=== PATIENT | male | born 1945 | race Caucasian/White ===

== ENCOUNTER → 2016-05-04 | Outpatient (CLI) | payer BC, MEDICARE ==
[~2016-05-04] MED LIST: B-100 COMPLEX1 EACH PO; CENTRUM SILVER1 EAC1 PO; HYDROCHLOROTHIA25 MG PO; KEFLEX500 MG PO; NORCO 5/3251 TABLET PO; NORVASC5 MG PO; PROSCAR5 MG PO; PROTONIX40 MG; PROTONIX40 MG PO; TAMSULOSIN HCL0.4 MG PO; VITAMIN B-6100 MG PO; VITAMIN D2000 UNIT PO
== END | disposition home or self-care (01) ==
LOC: CDC 12:35
DX: I49.3 Ventricular premature depolarization (principal)
CPT/HCPCS: 93000

== ENCOUNTER 2016-09-22 12:49 | Emergency (ER) | payer OTHER ==
[~2016-09-22] VITALS: Ht 175.3 cm; Wt 94.1 kg
[2016-09-22 13:28] LABS: EOSINOPHIL (%) 0.6 % (0-5); EOSINOPHIL COUNT 0.1 K/uL (0-0.3); HEMATOCRIT 41.4 % (38.0-50.0); IMMATURE GRANULOCYTE (%) 0.6 % (0.0-0.7); IMMATURE GRANULOCYTE COUNT 0.1 K/uL; INSTRUMENT ABS NEUTROPHIL CT 8.9 K/uL; LYMPHOCYTE COUNT 0.9 K/uL (1.0-2.8); MCH 30.4 PG (29.0-34.0); MCHC 34.3 G/DL (30.0-36.0); MCV 88.7 FL (86-99); MEAN PLAT.VOLUME 10.6 uM^3 (9.0-12.4); MONOCYTE (%) 4.3 % (3-12); MONOCYTE COUNT 0.5 K/uL (0-0.8); NEUTROPHIL (%) 85.9 % (45-76); NEUTROPHIL COUNT 8.9 K/uL (1.8-6.4); PLATELET COUNT 199 K/uL (156-360); RBC DIS.WIDTH-CV 12.4 % (11.8-14.6); RBC DIS.WIDTH-SD 40.7 % (39-53); RED BLOOD COUNT 4.67 M/uL (4.00-5.50); WHITE BLOOD COUNT 10.4 K/uL (4.1-10.2)
[2016-09-22 13:39] LABS: CHLORIDE 104 mEq/L (99-109); POTASSIUM 3.7 mEq/L (3.7-5.4); PROTHROMBIN TIME 10.2 (9.2-11.2); PTT 23.3 (25-32); SODIUM 138 mEq/L (136-147)
[2016-09-22 13:40] LABS: MAGNESIUM 1.7 mg/dL (1.3-2.7)
[2016-09-22 13:41] LABS: GLUCOSE 128 mg/dL (70-99)
[2016-09-22 13:42] LABS: ANION GAP 11 MEQ/L (2-14)
[2016-09-22 13:45] LABS: GFR ESTIMATE (CALCULATED) > 59 mL/min/
[2016-09-22 13:46] LABS: UREA NITROGEN (BUN) 16 mg/dL (9-23)
[2016-09-22 13:49] LABS: TROP-I INTERPRETATION NEGATIVE; TROPONIN-I < 0.01 ng/mL (0.0-0.30)
[2016-09-22] MEDS ORDERED: ALEVE220 MG PO (17:32)
[2016-09-22 22:01] LABS: Estimated Average Glucose 108 mg/dL (70-123); HEMOGLOBIN A1c (GLYCOHEMOGLOB) 5.4 % HGB (Below 5.7)
[2016-09-22 22:03] LABS: HDL CHOLESTEROL 50 MG/DL (Desirable>=40); LDL CHOLESTEROL 94 mg/dL (Desirable<100); NON-HDL CHOLESTEROL 106 mg/dL (Desirable<160); TOTAL CHOLESTEROL 156 mg/dL (Desirable<200); TRIGLYCERIDES 61 MG/DL (Normal: <150)
[2016-09-23 00:47] VITALS: BP 135/84
[2016-09-24 08:52] LABS: TREPONEMA ANTIBODY NEGATIVE (NEGATIVE)
== END 2016-09-23 01:07 | disposition short-term general hospital (02) ==
LOC: EME 12:49 → EDOF 20:41 → EME 20:41 → EDOF 21:03
PROVIDERS: Emergency Medicine; Hospitalist
DX: C71.9 Malignant neoplasm of brain, unspecified (principal); R55 Syncope and collapse; I10 Essential (primary) hypertension; K21.9 Gastro-esophageal reflux disease without esophagitis; Z87.891 Personal history of nicotine dependence; N40.0 Benign prostatic hyperplasia without lower urinary tract symptoms; M19.90 Unspecified osteoarthritis, unspecified site
CPT/HCPCS: 70140; 70450; 70553; 71010; 80048; 80053; 80061; 82607; 82746; 83036; 83735; 84484; 85025; 85027; 85610; 85730; 86038; 86780; 93005; 93880; 99281; 99285; J1100; J1953; J2250; J2405; J7050

== ENCOUNTER 2016-11-12 03:26 | Inpatient (IN) | payer OTHER ==
[~2016-11-12] VITALS: Ht 175.3 cm; Wt 96.2 kg
[~2016-11-12 03:26] MED LIST changes: +ALEVE220 MG PO
[2016-11-12] MEDS ORDERED: LEVETIRACETAM500 MG PO (03:42)
[2016-11-12] MEDS ORDERED: DECADRON4 MG PO (03:44)
[2016-11-12 05:04] LABS: HEMATOCRIT 40.9 % (38.0-50.0); MCH 30.4 PG (29.0-34.0); MCHC 34.5 G/DL (30.0-36.0); MCV 88.1 FL (86-99); MEAN PLAT.VOLUME 9.5 uM^3 (9.0-12.4); PLATELET COUNT 200 K/uL (156-360); RBC DIS.WIDTH-CV 13.1 % (11.8-14.6); RBC DIS.WIDTH-SD 42.1 % (39-53); RED BLOOD COUNT 4.64 M/uL (4.00-5.50); WHITE BLOOD COUNT 12.1 K/uL (4.1-10.2)
[2016-11-12 05:11] LABS: CHLORIDE 102 mEq/L (99-109); POTASSIUM 3.8 mEq/L (3.7-5.4); SODIUM 134 mEq/L (136-147)
[2016-11-12 05:14] LABS: GLUCOSE 108 mg/dL (70-99)
[2016-11-12 05:15] LABS: ANION GAP 9 MEQ/L (2-14)
[2016-11-12 05:16] LABS: TOTAL BILIRUBIN 0.4 mg/dL (0.0-1.0)
[2016-11-12 05:17] LABS: ALKALINE PHOSPHATASE 75 IU/L (3-129); GFR ESTIMATE (CALCULATED) > 59 mL/min/
[2016-11-12 05:18] LABS: UREA NITROGEN (BUN) 18 mg/dL (9-23)
[2016-11-12 05:21] LABS: LIPASE 19 U/L (1.0-51.0)
[2016-11-12 07:37] LABS: TROP-I INTERPRETATION NEGATIVE; TROPONIN-I 0.02 ng/mL (0.0-0.30)
[2016-11-12 07:52] LABS: SALICYLATE < 5.0 MG/DL (15-30)
[2016-11-12 08:13] LABS: ADD MIUA? YES; BILIRUBIN NEGATIVE; BLOOD LARGE; COLOR YELLOW ((YELLOW)); GLUCOSE (STRIP) NEGATIVE; KETONES NEGATIVE; LEUKOCYTES NEGATIVE; NITRITE NEGATIVE; PROTEIN (STRIP) NEGATIVE; SPECIFIC GRAVITY 1.015 (1.000-1.030); UROBILINOGEN 0.2 MG/DL (0.2-1.0)
[2016-11-12 08:32] LABS: AMPHETAMINE NEGATIVE (500 ng/mL); BARBITURATES NEGATIVE (200 ng/mL); BENZODIAZEPINES NEGATIVE (150 ng/mL); COCAINE NEGATIVE (150 ng/mL); METHADONE NEGATIVE (200 ng/mL); METHAMPHETAMINE NEGATIVE (500 ng/mL); OPIATES (MORPHINE) NEGATIVE (100 ng/mL); PHENCYCLIDINE NEGATIVE (25 ng/mL); THC CANNABINOIDS NEGATIVE (50 ng/mL); TRICYCLIC ANTIDEPRESSANTS NEGATIVE (300 ng/mL)
[2016-11-12 08:33] LABS: INTERNAL CONTROLS VALID? YES; OXYCODONE NEGATIVE (100 ng/mL); PROPOXYPHENE NEGATIVE (300 ng/mL)
[2016-11-12 08:50] LABS: EPITHELIAL CELLS RARE /HPF; MUCUS NONE SEEN /LPF; RED BLOOD CELLS TNTC /HPF (0-5); WHITE BLOOD CELLS 0-5 /HPF (0-5)
[2016-11-12 08:51] LABS: AMORPHOUS URATES CRYSTALS 2+; BACTERIA NONE SEEN /HPF; CRYSTALS PRESENT; UCUL ADDED? YES
[2016-11-12 10:20] VITALS: BP 188/90
[2016-11-12 11:49] VITALS: BP 178/88
[2016-11-12 13:54] VITALS: BP 128/72
[2016-11-12] MEDS ORDERED: TEMOZOLOMIDE20 MG PO (14:34)
[2016-11-12] MEDS ORDERED: TEMODAR140 MG PO (14:34)
[2016-11-12] MEDS ORDERED: VALTREX50 MG/ML PO (15:34)
[2016-11-12 15:51] VITALS: BP 145/64
[2016-11-12 18:19] LABS: ADD MIUA? NO; BILIRUBIN NEGATIVE; BLOOD NEGATIVE; COLOR YELLOW ((YELLOW)); GLUCOSE (STRIP) NEGATIVE; KETONES NEGATIVE; LEUKOCYTES NEGATIVE; NITRITE NEGATIVE; PROTEIN (STRIP) NEGATIVE; SPECIFIC GRAVITY 1.006 (1.000-1.030); UROBILINOGEN 0.2 MG/DL (0.2-1.0)
[2016-11-12 18:50] VITALS: BP 127/72
[2016-11-13 00:41] VITALS: BP 124/69
[2016-11-13 06:34] LABS: HEMATOCRIT 40.4 % (38.0-50.0); MCH 30.4 PG (29.0-34.0); MCHC 34.7 G/DL (30.0-36.0); MCV 87.6 FL (86-99); MEAN PLAT.VOLUME 9.9 uM^3 (9.0-12.4); PLATELET COUNT 213 K/uL (156-360); RBC DIS.WIDTH-CV 12.9 % (11.8-14.6); RBC DIS.WIDTH-SD 41.1 % (39-53); RED BLOOD COUNT 4.61 M/uL (4.00-5.50); WHITE BLOOD COUNT 11.6 K/uL (4.1-10.2)
[2016-11-13 06:46] VITALS: BP 130/65
[2016-11-13 07:00] LABS: ALKALINE PHOSPHATASE 74 IU/L (3-129); ANION GAP 8 MEQ/L (2-14); CHLORIDE 97 MEQ/L (99-109); DIRECT BILIRUBIN 0.1 mg/dL (0.0-0.3); GFR ESTIMATE (CALCULATED) > 59 mL/min/; GLUCOSE 139 mg/dL (70-99); SAMPLE HEMOLYSIS CHECK 0; SAMPLE ICTERIC CHECK 0; SAMPLE LIPEMIA CHECK 0; SODIUM 131 MEQ/L (136-147); TOTAL BILIRUBIN 0.5 MG/DL (0.0-1.0); UREA NITROGEN (BUN) 12 mg/dL (9-23)
[2016-11-13 07:01] LABS: POTASSIUM 4.9 MEQ/L (3.7-5.4)
[2016-11-13 10:51] VITALS: BP 171/81
[2016-11-13 12:44] VITALS: BP 156/70
[2016-11-13 14:58] VITALS: BP 155/74
[2016-11-13 19:59] VITALS: BP 163/83
[2016-11-14] VITALS (7 sets, daily range): BP systolic 136–183; BP diastolic 77–95
[2016-11-14 06:17] LABS: EOSINOPHIL (%) 0 % (0-5); HEMATOCRIT 43.3 % (38.0-50.0); IMMATURE GRANULOCYTE (%) 1.6 % (0.0-0.7); IMMATURE GRANULOCYTE COUNT 0.3 K/uL; INSTRUMENT ABS NEUTROPHIL CT 16.7 K/uL; MCH 30.4 PG (29.0-34.0); MCHC 34.9 G/DL (30.0-36.0); MCV 87.3 FL (86-99); MEAN PLAT.VOLUME 9.9 uM^3 (9.0-12.4); MONOCYTE (%) 3.1 % (3-12); MONOCYTE COUNT 0.6 K/uL (0-0.8); NEUTROPHIL (%) 89.8 % (45-76); NEUTROPHIL COUNT 16.7 K/uL (1.8-6.4); PLATELET COUNT 232 K/uL (156-360); RBC DIS.WIDTH-SD 40.9 % (39-53); RED BLOOD COUNT 4.96 M/uL (4.00-5.50); WHITE BLOOD COUNT 18.6 K/uL (4.1-10.2)
[2016-11-14 06:38] LABS: ALKALINE PHOSPHATASE 69 IU/L (3-129); ANION GAP 9 MEQ/L (2-14); CHLORIDE 99 MEQ/L (99-109); GFR ESTIMATE (CALCULATED) > 59 mL/min/; GLUCOSE 107 mg/dL (70-99); POTASSIUM 4.1 MEQ/L (3.7-5.4); SAMPLE HEMOLYSIS CHECK 0; SAMPLE ICTERIC CHECK 0; SAMPLE LIPEMIA CHECK 0; SODIUM 133 MEQ/L (136-147); TOTAL BILIRUBIN 0.5 MG/DL (0.0-1.0); UREA NITROGEN (BUN) 15 mg/dL (9-23)
[2016-11-15 03:46] VITALS: BP 198/110
[2016-11-15 10:23] VITALS: BP 156/83
[2016-11-15 12:25] VITALS: BP 130/68
[2016-11-15 15:56] VITALS: BP 154/83
[2016-11-16 00:29] VITALS: BP 166/82
[2016-11-16 07:54] VITALS: BP 157/73
[2016-11-16 15:45] VITALS: BP 149/84
[2016-11-16 21:50] VITALS: BP 156/76
[2016-11-17 00:29] VITALS: BP 155/70
[2016-11-17 07:21] VITALS: BP 143/79
[2016-11-17 08:33] LABS: ANION GAP 5 MEQ/L (2-14); CHLORIDE 97 MEQ/L (99-109); GFR ESTIMATE (CALCULATED) > 59 mL/min/; GLUCOSE 98 mg/dL (70-99); SAMPLE HEMOLYSIS CHECK 0; SAMPLE ICTERIC CHECK 0; SAMPLE LIPEMIA CHECK 0; SODIUM 133 MEQ/L (136-147); UREA NITROGEN (BUN) 18 mg/dL (9-23)
[2016-11-17 08:35] LABS: POTASSIUM 5.1 MEQ/L (3.7-5.4)
[2016-11-17 15:38] VITALS: BP 175/92
[2016-11-17 23:46] VITALS: BP 142/92
[2016-11-18 03:55] VITALS: BP 161/92
[2016-11-18 08:06] VITALS: BP 128/64
[2016-11-19 00:39] VITALS: BP 134/68
[2016-11-19 07:21] VITALS: BP 155/74
[2016-11-19 16:00] VITALS: BP 148/80
[2016-11-19 23:16] VITALS: BP 142/78
[2016-11-20 06:07] LABS: EOSINOPHIL (%) 0 % (0-5); HEMATOCRIT 44.4 % (38.0-50.0); IMMATURE GRANULOCYTE (%) 4.6 % (0.0-0.7); IMMATURE GRANULOCYTE COUNT 0.7 K/uL; INSTRUMENT ABS NEUTROPHIL CT 12.5 K/uL; MCH 31.6 PG (29.0-34.0); MCV 87.6 FL (86-99); MEAN PLAT.VOLUME 10.2 uM^3 (9.0-12.4); MONOCYTE (%) 5.3 % (3-12); MONOCYTE COUNT 0.8 K/uL (0-0.8); NEUTROPHIL (%) 83.5 % (45-76); NEUTROPHIL COUNT 12.5 K/uL (1.8-6.4); PLATELET COUNT 215 K/uL (156-360); RBC DIS.WIDTH-CV 13.5 % (11.8-14.6); RBC DIS.WIDTH-SD 42.1 % (39-53); RED BLOOD COUNT 5.07 M/uL (4.00-5.50); WHITE BLOOD COUNT 14.9 K/uL (4.1-10.2)
[2016-11-20 06:41] LABS: ALKALINE PHOSPHATASE 59 IU/L (3-129); ANION GAP 8 MEQ/L (2-14); CHLORIDE 96 MEQ/L (99-109); GFR ESTIMATE (CALCULATED) > 59 mL/min/; GLUCOSE 98 mg/dL (70-99); POTASSIUM 4.3 MEQ/L (3.7-5.4); SAMPLE HEMOLYSIS CHECK 0; SAMPLE ICTERIC CHECK 0; SAMPLE LIPEMIA CHECK 0; SODIUM 131 MEQ/L (136-147); UREA NITROGEN (BUN) 21 mg/dL (9-23)
[2016-11-20 06:46] LABS: TOTAL BILIRUBIN 0.8 MG/DL (0.0-1.0)
[2016-11-20 07:19] VITALS: BP 160/79
[2016-11-20 15:50] VITALS: BP 142/84
[2016-11-21 00:05] VITALS: BP 158/72
[2016-11-21 06:11] LABS: BASOPHIL COUNT 0.1 K/uL (0-0.1); EOSINOPHIL (%) 0 % (0-5); HEMATOCRIT 49.7 % (38.0-50.0); IMMATURE GRANULOCYTE (%) 4.7 % (0.0-0.7); INSTRUMENT ABS NEUTROPHIL CT 17.9 K/uL; LYMPHOCYTE COUNT 0.8 K/uL (1.0-2.8); MCH 31.6 PG (29.0-34.0); MCHC 35.8 G/DL (30.0-36.0); MCV 88.3 FL (86-99); MEAN PLAT.VOLUME 10.3 uM^3 (9.0-12.4); MONOCYTE (%) 4.1 % (3-12); MONOCYTE COUNT 0.9 K/uL (0-0.8); NEUTROPHIL (%) 87.1 % (45-76); NEUTROPHIL COUNT 17.9 K/uL (1.8-6.4); PLATELET COUNT 227 K/uL (156-360); RBC DIS.WIDTH-CV 13.7 % (11.8-14.6); RBC DIS.WIDTH-SD 43.3 % (39-53); RED BLOOD COUNT 5.63 M/uL (4.00-5.50); WHITE BLOOD COUNT 20.5 K/uL (4.1-10.2)
[2016-11-21 07:43] VITALS: BP 175/89
[2016-11-21 10:11] LABS: ADD MIUA? NO; BILIRUBIN NEGATIVE; BLOOD NEGATIVE; COLOR YELLOW ((YELLOW)); GLUCOSE (STRIP) NEGATIVE; KETONES NEGATIVE; LEUKOCYTES NEGATIVE; NITRITE NEGATIVE; PROTEIN (STRIP) NEGATIVE; UCUL ADDED? NO; UROBILINOGEN 0.2 MG/DL (0.2-1.0)
[2016-11-21 11:36] LABS: ANION GAP 9 MEQ/L (2-14); CHLORIDE 91 MEQ/L (99-109); GFR ESTIMATE (CALCULATED) > 59 mL/min/; GLUCOSE 108 mg/dL (70-99); POTASSIUM 4.3 MEQ/L (3.7-5.4); SAMPLE HEMOLYSIS CHECK 0; SAMPLE ICTERIC CHECK 0; SAMPLE LIPEMIA CHECK 0; SODIUM 128 MEQ/L (136-147); UREA NITROGEN (BUN) 22 mg/dL (9-23)
[2016-11-21 15:53] VITALS: BP 163/80
[2016-11-22 08:59] VITALS: BP 159/74
[2016-11-22 16:17] VITALS: BP 146/74
[2016-11-22 23:44] VITALS: BP 162/81
[2016-11-23 06:59] LABS: MCH 31.8 PG (29.0-34.0); MCHC 35.7 G/DL (30.0-36.0); PLATELET COUNT 169 K/uL (156-360); RBC DIS.WIDTH-CV 13.7 % (11.8-14.6); RBC DIS.WIDTH-SD 44.3 % (39-53); RED BLOOD COUNT 4.72 M/uL (4.00-5.50); WHITE BLOOD COUNT 12.3 K/uL (4.1-10.2)
[2016-11-23 07:10] LABS: ALKALINE PHOSPHATASE 58 IU/L (3-129); ANION GAP 5 MEQ/L (2-14); CHLORIDE 97 MEQ/L (99-109); GFR ESTIMATE (CALCULATED) > 59 mL/min/; GLUCOSE 100 mg/dL (70-99); POTASSIUM 4.4 MEQ/L (3.7-5.4); SAMPLE HEMOLYSIS CHECK 0; SAMPLE ICTERIC CHECK 0; SAMPLE LIPEMIA CHECK 0; SODIUM 130 MEQ/L (136-147); TOTAL BILIRUBIN 0.7 MG/DL (0.0-1.0); UREA NITROGEN (BUN) 23 mg/dL (9-23)
[2016-11-23 07:28] VITALS: BP 151/84
[2016-11-23 16:34] VITALS: BP 142/70
[2016-11-24 06:08] LABS: HEMATOCRIT 43.7 % (38.0-50.0); MCH 31.6 PG (29.0-34.0); MCHC 35.2 G/DL (30.0-36.0); MCV 89.7 FL (86-99); MEAN PLAT.VOLUME 10.3 uM^3 (9.0-12.4); PLATELET COUNT 187 K/uL (156-360); RBC DIS.WIDTH-CV 13.7 % (11.8-14.6); RBC DIS.WIDTH-SD 44.9 % (39-53); RED BLOOD COUNT 4.87 M/uL (4.00-5.50)
[2016-11-24 06:36] LABS: ANION GAP 7 MEQ/L (2-14); CHLORIDE 100 MEQ/L (99-109); GFR ESTIMATE (CALCULATED) > 59 mL/min/; GLUCOSE 91 mg/dL (70-99); POTASSIUM 4.2 MEQ/L (3.7-5.4); SAMPLE HEMOLYSIS CHECK 0; SAMPLE ICTERIC CHECK 0; SAMPLE LIPEMIA CHECK 0; SODIUM 135 MEQ/L (136-147); UREA NITROGEN (BUN) 22 mg/dL (9-23)
[2016-11-24 07:02] VITALS: BP 145/74
[2016-11-24 16:12] VITALS: BP 175/81
[2016-11-24 20:37] VITALS: BP 136/70
[2016-11-24 22:41] VITALS: BP 138/72
[2016-11-25 06:24] LABS: HEMATOCRIT 48.3 % (38.0-50.0); MCH 31.9 PG (29.0-34.0); MCHC 35.6 G/DL (30.0-36.0); MCV 89.4 FL (86-99); MEAN PLAT.VOLUME 10.4 uM^3 (9.0-12.4); PLATELET COUNT 232 K/uL (156-360); RBC DIS.WIDTH-CV 14.1 % (11.8-14.6); RBC DIS.WIDTH-SD 45.7 % (39-53); WHITE BLOOD COUNT 23.3 K/uL (4.1-10.2)
[2016-11-25 06:57] LABS: ANION GAP 10 MEQ/L (2-14); CHLORIDE 97 MEQ/L (99-109); GFR ESTIMATE (CALCULATED) > 59 mL/min/; GLUCOSE 112 mg/dL (70-99); POTASSIUM 4.6 MEQ/L (3.7-5.4); SAMPLE HEMOLYSIS CHECK 0; SAMPLE ICTERIC CHECK 0; SAMPLE LIPEMIA CHECK 0; SODIUM 132 MEQ/L (136-147); UREA NITROGEN (BUN) 22 mg/dL (9-23)
[2016-11-25 07:16] VITALS: BP 167/84
[2016-11-26 07:01] LABS: EOSINOPHIL (%) 0.1 % (0-5); HEMATOCRIT 41.9 % (38.0-50.0); IMMATURE GRANULOCYTE (%) 2.9 % (0.0-0.7); IMMATURE GRANULOCYTE COUNT 0.6 K/uL; INSTRUMENT ABS NEUTROPHIL CT 18.1 K/uL; LYMPHOCYTE COUNT 0.9 K/uL (1.0-2.8); MCH 31.2 PG (29.0-34.0); MCHC 34.8 G/DL (30.0-36.0); MCV 89.5 FL (86-99); MEAN PLAT.VOLUME 9.9 uM^3 (9.0-12.4); MONOCYTE (%) 5.7 % (3-12); MONOCYTE COUNT 1.2 K/uL (0-0.8); NEUTROPHIL COUNT 18.1 K/uL (1.8-6.4); PLATELET COUNT 172 K/uL (156-360); RBC DIS.WIDTH-SD 45.7 % (39-53); RED BLOOD COUNT 4.68 M/uL (4.00-5.50); WHITE BLOOD COUNT 20.8 K/uL (4.1-10.2)
[2016-11-26 07:02] LABS: ANION GAP 6 MEQ/L (2-14); CHLORIDE 99 MEQ/L (99-109); GFR ESTIMATE (CALCULATED) > 59 mL/min/; GLUCOSE 107 mg/dL (70-99); POTASSIUM 4.1 MEQ/L (3.7-5.4); SAMPLE HEMOLYSIS CHECK 0; SAMPLE ICTERIC CHECK 0; SAMPLE LIPEMIA CHECK 0; SODIUM 134 MEQ/L (136-147); UREA NITROGEN (BUN) 27 mg/dL (9-23)
[2016-11-26 07:11] VITALS: BP 120/66
[2016-11-26] MEDS ORDERED: MIRTAZAPINE15 MG PO (08:24)
[2016-11-26] MEDS ORDERED: LAMICTAL25 MG PO (08:24)
[2016-11-26] MEDS ORDERED: AMLODIPINE BESYL5 MG PO (08:24)
[2016-11-26] MEDS ORDERED: ATENOLOL25 MG PO (08:24)
[2016-11-26] MEDS ORDERED: HALDOL1 MG PO (08:24)
[2016-11-26 15:40] VITALS: BP 130/74
[2016-11-27 07:35] VITALS: BP 152/73
[2016-11-27 16:02] VITALS: BP 137/79
[2016-11-28 00:10] VITALS: BP 133/63
[2016-11-28 07:29] VITALS: BP 161/81
[2016-11-28 09:37] LABS: ALKALINE PHOSPHATASE 64 IU/L (3-129); ANION GAP 5 MEQ/L (2-14); CHLORIDE 96 MEQ/L (99-109); GFR ESTIMATE (CALCULATED) > 59 mL/min/; GLUCOSE 123 mg/dL (70-99); POTASSIUM 4.3 MEQ/L (3.7-5.4); SAMPLE HEMOLYSIS CHECK 0; SAMPLE ICTERIC CHECK 0; SAMPLE LIPEMIA CHECK 0; SODIUM 130 MEQ/L (136-147); UREA NITROGEN (BUN) 22 mg/dL (9-23)
[2016-11-28 09:43] LABS: TOTAL BILIRUBIN 0.5 MG/DL (0.0-1.0)
[2016-11-28 16:11] VITALS: BP 158/68
[2016-11-29 00:12] VITALS: BP 136/78
[2016-11-29 06:09] LABS: ANION GAP 9 MEQ/L (2-14); CHLORIDE 97 MEQ/L (99-109); GFR ESTIMATE (CALCULATED) > 59 mL/min/; GLUCOSE 102 mg/dL (70-99); POTASSIUM 5.1 MEQ/L (3.7-5.4); SAMPLE HEMOLYSIS CHECK 0; SAMPLE ICTERIC CHECK 0; SAMPLE LIPEMIA CHECK 0; SODIUM 130 MEQ/L (136-147); UREA NITROGEN (BUN) 23 mg/dL (9-23)
[2016-11-29 08:35] VITALS: BP 151/80
[2016-11-29 16:28] VITALS: BP 135/75
[2016-11-30 00:04] VITALS: BP 136/73
[2016-11-30 07:40] VITALS: BP 142/78
[2016-11-30 16:28] VITALS: BP 128/69
[2016-11-30 22:11] VITALS: BP 147/76
[2016-12-01 00:25] VITALS: BP 141/68
[2016-12-01 06:56] LABS: EOSINOPHIL (%) 0 % (0-5); HEMATOCRIT 38.1 % (38.0-50.0); IMMATURE GRANULOCYTE (%) 3.2 % (0.0-0.7); IMMATURE GRANULOCYTE COUNT 0.4 K/uL; INSTRUMENT ABS NEUTROPHIL CT 12.4 K/uL; LYMPHOCYTE COUNT 0.6 K/uL (1.0-2.8); MCH 31.4 PG (29.0-34.0); MCHC 35.2 G/DL (30.0-36.0); MCV 89.2 FL (86-99); MONOCYTE (%) 2.8 % (3-12); MONOCYTE COUNT 0.4 K/uL (0-0.8); NEUTROPHIL (%) 89.8 % (45-76); NEUTROPHIL COUNT 12.4 K/uL (1.8-6.4); RBC DIS.WIDTH-CV 14.1 % (11.8-14.6); RBC DIS.WIDTH-SD 46.3 % (39-53); RED BLOOD COUNT 4.27 M/uL (4.00-5.50); WHITE BLOOD COUNT 13.8 K/uL (4.1-10.2)
[2016-12-01 07:08] LABS: ALKALINE PHOSPHATASE 61 IU/L (3-129); ANION GAP 7 MEQ/L (2-14); CHLORIDE 99 MEQ/L (99-109); GFR ESTIMATE (CALCULATED) > 59 mL/min/; GLUCOSE 121 mg/dL (70-99); POTASSIUM 4.2 MEQ/L (3.7-5.4); SAMPLE HEMOLYSIS CHECK 0; SAMPLE ICTERIC CHECK 0; SAMPLE LIPEMIA CHECK 0; SODIUM 131 MEQ/L (136-147); TOTAL BILIRUBIN 0.4 MG/DL (0.0-1.0); UREA NITROGEN (BUN) 17 mg/dL (9-23)
[2016-12-01 07:32] LABS: ABS NEUTROPHIL COUNT 12.5; ANISOCYTOSIS 1+; ATYPICAL LYMPHOCYTE 2.6 %; BAND NEUTROPHILS 3.4 % (0-8.0); EOSINOPHIL ABS CT 0; LYMPHOCYTES 1.7 % (15.0-45.0); MACROCYTES 1+; MEAN PLAT.VOLUME 9.9 uM^3 (9.0-12.4); MYELOCYTES 0.8 %; PLAT.SUFFICIENCY DECREASED; SEG.NEUTROPHILS 87.2 % (46.0-76.0)
[2016-12-01 07:38] LABS: PLATELET COUNT 116 K/uL (156-360)
[2016-12-01 07:46] VITALS: BP 128/75
[2016-12-01 16:45] VITALS: BP 138/68
[2016-12-01 20:35] VITALS: BP 169/77
[2016-12-01 22:40] VITALS: BP 178/83
[2016-12-02 06:42] LABS: EOSINOPHIL (%) 0 % (0-5); HEMATOCRIT 40.5 % (38.0-50.0); IMMATURE GRANULOCYTE (%) 4.4 % (0.0-0.7); IMMATURE GRANULOCYTE COUNT 0.7 K/uL; INSTRUMENT ABS NEUTROPHIL CT 13.8 K/uL; LYMPHOCYTE COUNT 0.7 K/uL (1.0-2.8); MCH 30.8 PG (29.0-34.0); MCHC 34.6 G/DL (30.0-36.0); MCV 89.2 FL (86-99); MEAN PLAT.VOLUME 9.5 uM^3 (9.0-12.4); MONOCYTE (%) 2.6 % (3-12); MONOCYTE COUNT 0.4 K/uL (0-0.8); NEUTROPHIL (%) 88.6 % (45-76); NEUTROPHIL COUNT 13.8 K/uL (1.8-6.4); PLATELET COUNT 110 K/uL (156-360); RBC DIS.WIDTH-SD 45.8 % (39-53); RED BLOOD COUNT 4.54 M/uL (4.00-5.50); WHITE BLOOD COUNT 15.6 K/uL (4.1-10.2)
[2016-12-02 07:08] LABS: ALKALINE PHOSPHATASE 63 IU/L (3-129); ANION GAP 6 MEQ/L (2-14); CHLORIDE 97 MEQ/L (99-109); GFR ESTIMATE (CALCULATED) > 59 mL/min/; GLUCOSE 99 mg/dL (70-99); POTASSIUM 4.4 MEQ/L (3.7-5.4); SAMPLE HEMOLYSIS CHECK 0; SAMPLE ICTERIC CHECK 0; SAMPLE LIPEMIA CHECK 0; SODIUM 131 MEQ/L (136-147); UREA NITROGEN (BUN) 17 mg/dL (9-23)
[2016-12-02 07:10] LABS: TOTAL BILIRUBIN 0.5 MG/DL (0.0-1.0)
[2016-12-02 07:20] VITALS: BP 148/70
[2016-12-02 15:28] VITALS: BP 147/77
[2016-12-02 21:30] VITALS: BP 159/78
[2016-12-03 07:39] VITALS: BP 133/75
[2016-12-03 09:01] LABS: EOSINOPHIL (%) 0 % (0-5); HEMATOCRIT 39.6 % (38.0-50.0); IMMATURE GRANULOCYTE COUNT 0.5 K/uL; INSTRUMENT ABS NEUTROPHIL CT 11.5 K/uL; LYMPHOCYTE COUNT 0.5 K/uL (1.0-2.8); MCHC 34.6 G/DL (30.0-36.0); MCV 89.6 FL (86-99); MEAN PLAT.VOLUME 9.9 uM^3 (9.0-12.4); MONOCYTE (%) 3.3 % (3-12); MONOCYTE COUNT 0.4 K/uL (0-0.8); NEUTROPHIL (%) 88.6 % (45-76); NEUTROPHIL COUNT 11.5 K/uL (1.8-6.4); PLATELET COUNT 121 K/uL (156-360); RBC DIS.WIDTH-CV 14.2 % (11.8-14.6); RBC DIS.WIDTH-SD 47.1 % (39-53); RED BLOOD COUNT 4.42 M/uL (4.00-5.50); WHITE BLOOD COUNT 12.9 K/uL (4.1-10.2)
[2016-12-03 09:29] LABS: ALKALINE PHOSPHATASE 63 IU/L (3-129); ANION GAP 5 MEQ/L (2-14); CHLORIDE 95 MEQ/L (99-109); GFR ESTIMATE (CALCULATED) > 59 mL/min/; GLUCOSE 116 mg/dL (70-99); POTASSIUM 4.7 MEQ/L (3.7-5.4); SAMPLE HEMOLYSIS CHECK 0; SAMPLE ICTERIC CHECK 0; SAMPLE LIPEMIA CHECK 0; SODIUM 128 MEQ/L (136-147); TOTAL BILIRUBIN 0.4 MG/DL (0.0-1.0); UREA NITROGEN (BUN) 20 mg/dL (9-23)
[2016-12-03 16:15] VITALS: BP 147/72
[2016-12-03 22:53] VITALS: BP 186/86
[2016-12-04 00:25] VITALS: BP 160/80
[2016-12-04 06:01] LABS: MCH 30.7 PG (29.0-34.0); MCHC 34.5 G/DL (30.0-36.0); MCV 89.1 FL (86-99); NRBC (%) 0.2 /100 WBC (0-0); PLATELET COUNT 100 K/uL (156-360); RBC DIS.WIDTH-CV 13.9 % (11.8-14.6); RBC DIS.WIDTH-SD 45.5 % (39-53); RED BLOOD COUNT 4.49 M/uL (4.00-5.50); WHITE BLOOD COUNT 11.6 K/uL (4.1-10.2)
[2016-12-04 06:27] LABS: ANION GAP 6 MEQ/L (2-14); CHLORIDE 97 MEQ/L (99-109); GFR ESTIMATE (CALCULATED) > 59 mL/min/; GLUCOSE 110 mg/dL (70-99); POTASSIUM 4.3 MEQ/L (3.7-5.4); SAMPLE HEMOLYSIS CHECK 0; SAMPLE ICTERIC CHECK 0; SAMPLE LIPEMIA CHECK 0; SODIUM 132 MEQ/L (136-147); UREA NITROGEN (BUN) 18 mg/dL (9-23)
[2016-12-04 07:32] VITALS: BP 131/68
[2016-12-04 07:58] VITALS: BP 131/68
[2016-12-04 16:05] VITALS: BP 173/86
[2016-12-04 18:41] LABS: EOSINOPHIL (%) 0 % (0-5); HEMATOCRIT 44.7 % (38.0-50.0); IMMATURE GRANULOCYTE (%) 3.9 % (0.0-0.7); IMMATURE GRANULOCYTE COUNT 0.7 K/uL; INSTRUMENT ABS NEUTROPHIL CT 16.1 K/uL; MCH 31.4 PG (29.0-34.0); MCV 87.3 FL (86-99); MEAN PLAT.VOLUME 9.5 uM^3 (9.0-12.4); MONOCYTE COUNT 0.6 K/uL (0-0.8); NEUTROPHIL (%) 87.5 % (45-76); NEUTROPHIL COUNT 16.1 K/uL (1.8-6.4); PLATELET COUNT 142 K/uL (156-360); RBC DIS.WIDTH-CV 13.8 % (11.8-14.6); RED BLOOD COUNT 5.12 M/uL (4.00-5.50); WHITE BLOOD COUNT 18.4 K/uL (4.1-10.2)
[2016-12-04 18:52] LABS: CHLORIDE 98 mEq/L (99-109); POTASSIUM 4.7 mEq/L (3.7-5.4); SODIUM 130 mEq/L (136-147)
[2016-12-04 18:54] LABS: GLUCOSE 150 mg/dL (70-99)
[2016-12-04 18:56] LABS: ANION GAP 10 MEQ/L (2-14)
[2016-12-04 18:58] LABS: GFR ESTIMATE (CALCULATED) > 59 mL/min/
[2016-12-04 18:59] LABS: UREA NITROGEN (BUN) 18 mg/dL (9-23)
[2016-12-04 19:49] LABS: POINT-OF-CARE METER ID UU13113725
[2016-12-04 22:40] VITALS: BP 156/80
[2016-12-05 06:01] LABS: HEMATOCRIT 42.6 % (38.0-50.0); MCH 30.8 PG (29.0-34.0); MEAN PLAT.VOLUME 9.5 uM^3 (9.0-12.4); PLATELET COUNT 112 K/uL (156-360); RED BLOOD COUNT 4.84 M/uL (4.00-5.50)
[2016-12-05 06:24] LABS: ANION GAP 8 MEQ/L (2-14); CHLORIDE 97 MEQ/L (99-109); GFR ESTIMATE (CALCULATED) > 59 mL/min/; POTASSIUM 4.2 MEQ/L (3.7-5.4); SAMPLE HEMOLYSIS CHECK 0; SAMPLE ICTERIC CHECK 0; SAMPLE LIPEMIA CHECK 0; SODIUM 130 MEQ/L (136-147); UREA NITROGEN (BUN) 16 mg/dL (9-23)
[2016-12-05 06:40] LABS: GLUCOSE 98 mg/dL (70-99)
[2016-12-05 08:08] VITALS: BP 143/67
[2016-12-05 15:56] VITALS: BP 148/76
[2016-12-06 00:18] VITALS: BP 154/81
[2016-12-06 15:40] VITALS: BP 124/63
[2016-12-06 23:14] VITALS: BP 104/64
[2016-12-07 07:25] VITALS: BP 156/80
[2016-12-07 08:11] LABS: EOSINOPHIL (%) 0 % (0-5); HEMATOCRIT 45.6 % (38.0-50.0); IMMATURE GRANULOCYTE (%) 1.9 % (0.0-0.7); IMMATURE GRANULOCYTE COUNT 0.3 K/uL; LYMPHOCYTE COUNT 0.5 K/uL (1.0-2.8); MCH 32.2 PG (29.0-34.0); MCV 89.6 FL (86-99); MEAN PLAT.VOLUME 9.5 uM^3 (9.0-12.4); MONOCYTE (%) 2.8 % (3-12); MONOCYTE COUNT 0.4 K/uL (0-0.8); NEUTROPHIL (%) 92.2 % (45-76); PLATELET COUNT 123 K/uL (156-360); RBC DIS.WIDTH-CV 14.2 % (11.8-14.6); RBC DIS.WIDTH-SD 46.3 % (39-53); RED BLOOD COUNT 5.09 M/uL (4.00-5.50); WHITE BLOOD COUNT 15.2 K/uL (4.1-10.2)
[2016-12-07 08:34] LABS: ANION GAP 7 MEQ/L (2-14); CHLORIDE 97 MEQ/L (99-109); GFR ESTIMATE (CALCULATED) > 59 mL/min/; GLUCOSE 113 mg/dL (70-99); SAMPLE HEMOLYSIS CHECK 0; SAMPLE ICTERIC CHECK 0; SAMPLE LIPEMIA CHECK 0; SODIUM 132 MEQ/L (136-147); UREA NITROGEN (BUN) 17 mg/dL (9-23)
[2016-12-07] MEDS ORDERED: COLACE100 MG PO (18:02)
[2016-12-07] MEDS ORDERED: HYDROCIL INSTA1 EAC1 PO (18:03)
[2016-12-07] MEDS ORDERED: MAG-AL PLUS SUS30 ML PO (18:04)
[2016-12-07] MEDS ORDERED: SODIUM CHLORIDE1 G1 PO (18:05)
[2016-12-07] MEDS ORDERED: BENZTROPINE ME0.5 MG PO (18:06)
[2016-12-07] MEDS ORDERED: HALOPERIDOL2 MG PO (18:07)
[2016-12-07] MEDS ORDERED: IPRATR-ALBUTEROL3 ML IH (18:07)
[2016-12-07] MEDS ORDERED: MIRTAZAPINE30 MG PO (18:07)
[2016-12-07] MEDS ORDERED: ONDANSETRON HCL8 MG PO (18:09)
[2016-12-07] MEDS ORDERED: ZOSYN 3.3753.375 GM IV (18:12)
[2016-12-07] MEDS ORDERED: VANCOMYCIN1 GM/150 M IV ×2 (18:16→18:17)
[2016-12-07] MEDS ORDERED: DECADRON4 MG PO (18:27)
[2016-12-07] MEDS ORDERED: DEPAKOTE500 MG PO (18:28)
== END 2016-12-07 19:45 | DRG 54 ==
LOC: EME → DELPENDDIS → EME 03:26 → EDBD 03:26 → EDOF 08:02 → 5EAST 08:02 → ENRESERV 08:08 → CANRESERV 08:08 → ENRESERV 08:10 → 5EAST 09:59 → ENPENDDIS 11-26 → 5EAST 12-07 19:45
PROVIDERS: Emergency Medicine; Hospitalist; Nurse Practitioner Adult Health; Pediatrics; Physician Assistant; Physician Assistant Medical; Student in an Organized Health Care Education/Training Program
PROC: D0001ZZ Beam Radiation of Brain using Photons 1 - 10 MeV (ICD-10-PCS; principal; 2016-11-19)
DX: C71.0 Malignant neoplasm of cerebrum, except lobes and ventricles (principal); G93.6 Cerebral edema; J18.9 Pneumonia, unspecified organism; Y95 Nosocomial condition; E87.1 Hypo-osmolality and hyponatremia; G93.40 Encephalopathy, unspecified; Z51.5 Encounter for palliative care; Z66 Do not resuscitate; D72.829 Elevated white blood cell count, unspecified; T38.0X5A Adverse effect of glucocorticoids and synthetic analogues, initial encounter; R00.1 Bradycardia, unspecified; F22 Delusional disorders; B00.1 Herpesviral vesicular dermatitis; R60.0 Localized edema; I10 Essential (primary) hypertension; K21.9 Gastro-esophageal reflux disease without esophagitis; N40.0 Benign prostatic hyperplasia without lower urinary tract symptoms; R55 Syncope and collapse; R63.3 Feeding difficulties; G89.29 Other chronic pain; M54.5 Low back pain; M19.90 Unspecified osteoarthritis, unspecified site; R45.86 Emotional lability; F05 Delirium due to known physiological condition; F42.8 Other obsessive-compulsive disorder; R45.1 Restlessness and agitation; H91.90 Unspecified hearing loss, unspecified ear; E66.9 Obesity, unspecified; Z68.31 Body mass index [BMI] 31.0-31.9, adult; Z75.1 Person awaiting admission to adequate facility elsewhere; Z87.891 Personal history of nicotine dependence; Z91.81 History of falling
CPT/HCPCS: 70450; 71010; 71020; 77300; 77336; 77338 XS; 77385; 80048; 80048 91; 80053; 80069; 80076; 80202; 81003; 82140; 82948; 83605; 83690; 84443; 84484; 85025; 85027; 87040; 87070; 87086; 87205; 93005; 94799; 95819; 97530 GP; 99202; 99281; 99285; G0480; J1100; J1200; J1630; J1644; J2060; J2543; J3370; J7030; J7040; J7050; J7120; J8540; J8700

== ENCOUNTER 2016-12-17 06:18 | Emergency (ER) | payer OTHER ==
[~2016-12-17] VITALS: Ht 180.3 cm; Wt 92.5 kg
[~2016-12-17 06:18] MED LIST changes: +AMLODIPINE BESYL5 MG PO; +ATENOLOL25 MG PO; +BENZTROPINE ME0.5 MG PO; +COLACE100 MG PO; +DECADRON4 MG PO; +DEPAKOTE500 MG PO; +HALDOL1 MG PO; +HALOPERIDOL2 MG PO; +HYDROCIL INSTA1 EAC1 PO; +IPRATR-ALBUTEROL3 ML IH; +LAMICTAL25 MG PO; +LEVETIRACETAM500 MG PO; +MAG-AL PLUS SUS30 ML PO; +MIRTAZAPINE15 MG PO; +MIRTAZAPINE30 MG PO; +ONDANSETRON HCL8 MG PO; +SODIUM CHLORIDE1 G1 PO; +TEMODAR140 MG PO; +TEMOZOLOMIDE20 MG PO; +VALTREX50 MG/ML PO; +VANCOMYCIN1 GM/150 M IV; +ZOSYN 3.3753.375 GM IV
[2016-12-17 07:30] LABS: INTER. NORMALIZED RATIO 0.9; PROTHROMBIN TIME 9.9 SEC (10.2-12.9)
[2016-12-17 07:37] LABS: HEMATOCRIT 38.9 % (38.0-50.0); MCH 31.3 PG (29.0-34.0); MCHC 34.7 G/DL (30.0-36.0); RBC DIS.WIDTH-CV 14.3 % (11.8-14.6); RED BLOOD COUNT 4.32 M/uL (4.00-5.50); WHITE BLOOD COUNT 8.3 K/uL (4.1-10.2)
[2016-12-17 08:10] LABS: ANION GAP 10 MEQ/L (2-14); CHLORIDE 104 MEQ/L (99-109); POTASSIUM 3.9 MEQ/L (3.7-5.4); SAMPLE HEMOLYSIS CHECK 0; SAMPLE ICTERIC CHECK 0; SAMPLE LIPEMIA CHECK 0; SODIUM 140 MEQ/L (136-147)
[2016-12-17 08:14] LABS: ABS NEUTROPHIL COUNT 7.6; BAND NEUTROPHILS 5.4 % (0-8.0); EOSINOPHIL ABS CT 0; INSTRUMENT ABS NEUTROPHIL CT 6.6 K/uL; LYMPHOCYTES 0.9 % (15.0-45.0); MEAN PLAT.VOLUME 9.5 uM^3 (9.0-12.4); METAMYELOCYTES 2.7 %; MYELOCYTES 1.8 %; NUCLEATED RBC'S 0.9; PLAT.SUFFICIENCY DECREASED; SEG.NEUTROPHILS 86.5 % (46.0-76.0); SMUDGE CELLS 7.2
[2016-12-17 08:15] LABS: GFR ESTIMATE (CALCULATED) > 59 mL/min/; GLUCOSE 125 mg/dL (70-99); PLATELET COUNT 62 K/uL (156-360); UREA NITROGEN (BUN) 19 mg/dL (9-23)
[2016-12-17 08:18] LABS: TROP-I INTERPRETATION NEGATIVE; TROPONIN-I 0.02 ng/mL (0.0-0.30)
[2016-12-17 09:20] LABS: PTT 18.5 SEC (25-37)
[2016-12-17 14:15] VITALS: BP 142/83
== END 2016-12-17 14:38 ==
LOC: EME 06:18
PROVIDERS: Emergency Medicine
DX: D69.6 Thrombocytopenia, unspecified (principal); R45.1 Restlessness and agitation; Z85.841 Personal history of malignant neoplasm of brain; N40.0 Benign prostatic hyperplasia without lower urinary tract symptoms; K21.9 Gastro-esophageal reflux disease without esophagitis; I10 Essential (primary) hypertension; Z87.891 Personal history of nicotine dependence; I70.0 Atherosclerosis of aorta
CPT/HCPCS: 70450; 71010; 80048; 81003; 84484; 85025; 85610; 85730; 93005; 99281; 99285